=== PATIENT | female | born 1990 | race Two or more races ===

== ENCOUNTER 2017-08-12 21:10 | Emergency (ER) | payer MEDICAID ==
[~2017-08-12] VITALS: Ht 154.9 cm; Wt 72.6 kg
--- NOTE | 2017-08-12 21:12 | Emergency Room Report ---
History of Present Illness General Chief Complaint: Complications Source: Patient Present Illness [facility] The patient presents with vaginal bleeding which has been going on for a couple of days. It became heavy tonight. She complains about pain at this time also. 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 She's been 5 times and has two children. She states her blood type is O+. The pain is fairly severe and constant 9/10, aching pressure and crampiness, radiates slightly to back. She' s had miscarriages before and this feels like that. She denies any fevers, chills, vomiting. She's had no nausea. Paramedics found her with blood pressure 95 and started a fluid bolus. She states used one pad. No tissue or clots passed. No fevers. No medicine taken for the pain. Last period May. No uri, dyspnea, rashes, joint pain, headache. Allergies: Coded Allergies: No Known Allergies (Unverified , 08/12/17) Patient History Past Medical History: see triage record Social History: Denies: alcohol use, drug use Social History Narrative with sig other Last Menstrual Period: 7 weeks Now: Yes : 5 Para: 2 Reviewed Nursing Documentation: PMH: Agreed, PSxH: Agreed Nursing Documentation-PMH Past Medical History: No Stated History Review of Systems All Other Systems: negative except mentioned in HPI Physical Exam Vital Signs Date Time Temp Pulse Resp B/P (MAP) Pulse Ox O2 Delivery O2 Flow Rate FiO2 08/12/17 20:57 72 18 108/69 98 Room Air Sp02 EP Interpretation: reviewed, normal General Appearance: well appearing, no apparent distress, GCS 15 Head: normocephalic Eyes: bilateral eye normal inspection, bilateral eye PERRL ENT: moist mucus membranes Neck: supple Respiratory: lungs clear, normal breath sounds Cardiovascular #1: regular rate, rhythm Cardiovascular #2: 2+ radial (R) Gastrointestinal: normal inspection, normal bowel sounds, non tender, no mass, non-distended Genitourinary: no CVA tenderness, adnexa normal, ext genitalia/vag normal - some older blood, os closed, urethra normal, other - eversion, no active bleeding Musculoskeletal: back normal, gait/station normal, normal range of motion Neurologic: alert, oriented x3, grossly normal Psychiatric: mood/affect normal Skin: normal inspection, warm/dry Medical Decision Making Diagnostic Impression: Primary Impression: Threatened miscarriage in early ER Course Patient with lower abdominal pain and vag bleed stating she is . DDx: Miscarriage, ectopic, threatened miscarriage, torsion, UTI amongst others. Emergent evaluation with labs including beta HCG and type and Rh + ultrasound.. IV hydration and analgesia. U/S no IUP. Beta 417. Pain resolved. With low beta, could be early with bleeding. Will need repeated quants. Patient stable for outpatient observation and treatment. Laboratory Tests Test 08/12/17 20:32 White Blood Count 8.2 K/UL (4.8-10.8) Red Blood Count 3.95 M/UL (4.20-5.40) L Hemoglobin 13.0 G/DL (12.0-16.0) Hematocrit 36.7 % (37.0-47.0) L Mean Corpuscular Volume 93 FL (80-99) Mean Corpuscular Hemoglobin 32.9 PG (27.0-31.0) H Mean Corpuscular Hemoglobin Concent 35.5 G/DL (32.0-36.0) Red Cell Distribution Width 12.7 % (11.6-14.8) Platelet Count 244 K/UL (150-450) Mean Platelet Volume 7.3 FL (6.5-10.1) Neutrophils (%) (Auto) 53.6 % (45.0-75.0) Lymphocytes (%) (Auto) 34.2 % (20.0-45.0) Monocytes (%) (Auto) 6.5 % (1.0-10.0) Eosinophils (%) (Auto) 4.5 % (0.0-3.0) H Basophils (%) (Auto) 1.3 % (0.0-2.0) Prothrombin Time 10.7 SEC (9.30-11.50) Prothrombin Time INR 1.0 (0.9-1.1) PTT 27 SEC (23-33) Sodium Level 140 mEQ/L (135-145) Potassium Level 3.9 mEQ/L (3.4-4.9) Chloride Level 103 mEQ/L (98-107) Carbon Dioxide Level 22 mEQ/L (20-30) Anion Gap 15 (5-15) Blood Urea Nitrogen 10 mg/dL (7-23) Creatinine 0.7 mg/dL (0.5-0.9) Estimate Glomerular Filtration Rate > 60 mL/min (>60) Glucose Level 97 mg/dL (74-106) Calcium Level 8.9 mg/dL (8.6-10.2) Total Bilirubin 0.3 mg/dL (0.0-1.2) Aspartate Amino Transferase (AST) 22 U/L (5-40) Alanine Aminotransferase (ALT) 16 U/L (3-33) Alkaline Phosphatase 80 U/L (35-104) Total Protein 7.0 g/dL (6.6-8.7) Albumin 4.3 g/dL (3.5-5.2) Globulin 2.7 g/dL Albumin/Globulin Ratio 1.5 (1.0-2.7) Lipase 29 U/L (< 60) Human Chorionic Gonadotropin, Quant 417 mIU/mL Microbiology Date/Time Source Procedure Growth Status 08/13/17 00:40 Vaginal Wet Prep - Final Complete CT/MRI/US Diagnostic Results CT/MRI/US Diagnostic Results : Imaging Test Ordered: pelvic u/s Impression no ectopic, no IUP Status: improved Disposition: HOME, SELF-CARE Condition: Improved Scripts Acetaminophen (Tylenol) 325 Mg Tablet 650 MG ORAL Q6H Y for Prn Pain/Headache/Temp > 101, #30 TAB 0 Refills Prov: Mariano Carbajal M.D. 08/13/17 Mariano Carbajal M.D. Aug 12, 2017 21:11
[2017-08-12] MEDS ORDERED: DiphenhydrAMINE 50mg/ml Inj IVP ONE (21:15)
[2017-08-12] MEDS ORDERED: Morphine Sulfate 2mg/ml Inj IVP ONE (21:15)
[2017-08-12] MEDS ORDERED: Metoclopramide 10mg/2ml Inj IVP ONE (21:15)
[2017-08-12 21:44] LABS: BASOPHILS % (AUTO) 1.3 % (0.0-2.0); EOSINOPHILS % (AUTO) 4.5 % (0.0-3.0); LYMPHOCYTES % (AUTO) 34.2 % (20.0-45.0); MEAN CORPUSCULAR HEMOGLOBIN 32.9 PG (27.0-31.0); MEAN CORPUSCULAR HGB CONC 35.5 G/DL (32.0-36.0); MEAN CORPUSCULAR VOLUME 93 FL (80-99); MEAN PLATELET VOLUME 7.3 FL (6.5-10.1); MONOCYTES % (AUTO) 6.5 % (1.0-10.0); NEUTROPHILS % (AUTO) 53.6 % (45.0-75.0); PLATELET COUNT 244 K/UL (150-450); RED BLOOD COUNT 3.95 M/UL (4.20-5.40); RED CELL DISTRIBUTION WIDTH 12.7 % (11.6-14.8); WHITE BLOOD COUNT 8.2 K/UL (4.8-10.8)
[2017-08-12 21:50] LABS: PROTHROMBIN TIME 10.7 SEC (9.30-11.50)
[2017-08-12 21:57] LABS: ALANINE AMINOTRANSFERASE 16 U/L (3-33); ALBUMIN/GLOBULIN RATIO 1.5 (1.0-2.7); ANION GAP 15 (5-15); ASPARTATE AMINO TRANSFERASE 22 U/L (5-40); CALCIUM 8.9 mg/dL (8.6-10.2); CARBON DIOXIDE 22 mEQ/L (20-30); CHLORIDE 103 mEQ/L (98-107); CREATININE 0.7 mg/dL (0.5-0.9); GLOMERULAR FILTRATION RATE > 60 mL/min (>60); HEMOLYSIS 56; LIPASE 29 U/L (< 60); POTASSIUM 3.9 mEQ/L (3.4-4.9); SODIUM 140 mEQ/L (135-145)
[2017-08-13] MEDS ORDERED: TYLENOL325 MG ORAL (00:50)
[2017-08-13 01:49] VITALS: BP 92/55
[2017-08-13 02:24] VITALS: BP 101/67
[2017-08-13 02:25] VITALS: BP 101/64
--- NOTE | 2017-08-13 15:09 | Diagnostic Imaging Report ---
Indication: Pain, bleeding, positive test Technique: Transabdominal and transvaginal images Comparison: None Findings: Uterus measures 7.8 cm length by 4.7 cm AP. No intrauterine gestational sac is demonstrated. Endometrium measures 9 mm thick. No myometrial abnormality Left ovary measures 3 cm length. Right ovary measures 1.9 cm in length. No adnexal mass demonstrated. No free cul-de-sac fluid Impression: No intrauterine demonstrated. Differential possibilities include spontaneous , very early , and ectopic . Correlate with serial beta hCGs, consider followup sonography as clinically indicated Negative for adnexal mass
== END 2017-08-13 02:20 | disposition home or self-care (01) ==
LOC: EDBD 21:10 → EMR 08-13 02:16
DX: O20.0 Threatened abortion (principal)
CPT/HCPCS: 36415; 76830; 76856; 80053; 83690; 84702; 85025; 85610; 85730; 86850; 86900; 86901; 87210; 96361; 96374; 96375; 99284; J1200; J2270; J2765